=== PATIENT | female | born 1960 | race Caucasian/White ===

== ENCOUNTER 2021-12-29 14:38 | Emergency (ER) | payer OTHER ==
[~2021-12-29] VITALS: Ht 157.5 cm; Wt 86.2 kg
[2021-12-29] MEDS ORDERED: COZAAR 25 MG TA25 M1 PO (14:57)
[2021-12-29] MEDS ORDERED: ZOLOFT50 M1 PO (14:58)
[2021-12-29] MEDS ORDERED: ZPAK PO (15:22)
[2021-12-29] MEDS ORDERED: ONDANSETRON ODT4 MG PO (15:22)
[2021-12-29] MEDS ORDERED: TESSALON PERLE100 MG PO (15:22)
[2021-12-29] MEDS ORDERED: APAP W/CODEINE1 TA2 PO (15:22)
[2021-12-29 15:37] VITALS: BP 130/83
== END 2021-12-29 15:38 | disposition home or self-care (01) ==
LOC: M.ERS 14:38
DX: J22 Unspecified acute lower respiratory infection (principal); Z79.899 Other long term (current) drug therapy